=== PATIENT | female | born 1995 | race Caucasian/White ===

== ENCOUNTER 2019-01-03 12:59 | Emergency (ER) | payer BC ==
[2019-01-03 13:22] VITALS: O2SAT 100
[2019-01-03] MEDS ORDERED: Sodium Chloride 0.9% 1,000 ML IV ONE (13:32)
[2019-01-03 14:38] LABS: BASO % 0.7 % (0.0-2.0); EOS # 0.1 K/uL (0.0-0.7); EOS % 1.7 % (0.0-4.0); LYMPH # 1.4 K/uL (1.0-4.3); LYMPH % 18.7 % (20.0-40.0); MEAN CELL VOLUME 94.6 fl (81.0-99.0); MEAN CORPUSCULAR HEMOGLOBIN 32.1 pg (27.0-31.0); MEAN CORPUSCULAR HGB CONC 33.9 g/dL (33.0-37.0); MEAN PLATELET VOLUME 7.8 fl (7.2-11.7); MONO # 0.8 K/uL (0.0-0.8); MONO % 10.1 % (0.0-10.0); NEUT # 5.2 K/uL (1.8-7.0); NEUT % 68.8 % (50.0-75.0); NRBC % 0.1 % (0.0-0.0); RBC 4.35 Mil/uL (3.80-5.20); WHITE BLOOD COUNT 7.6 K/uL (4.8-10.8)
[2019-01-03 14:41] LABS: ALB/GLOB RATIO 1.4 (1.0-2.1); ALBUMIN 4.5 g/dL (3.5-5.0); ALT/SGPT 154 U/L (9-52); BLOOD UREA NITROGEN 8 mg/dl (7-17); CALCIUM 9.4 mg/dL (8.4-10.2); GFR NON-AFRICAN AMERICAN > 60; LIPASE 50 U/L (23-300)
[2019-01-03 14:46] LABS: SQUAMOUS EPITHIAL 2 /hpf (0-5); URINE BACTERIA RARE (<OCC); URINE BILIRUBIN NEGATIVE (NEGATIVE); URINE BLOOD LARGE (NEGATIVE); URINE CLARITY CLEAR (Clear); URINE COLOR STRAW (YELLOW); URINE GLUCOSE (UA) NEG (NEGATIVE); URINE LEUKOCYTE ESTERASE NEG Leu/uL (Negative); URINE PROTEIN NEGATIVE (NEGATIVE); URINE UROBILINOGEN 0.2-1.0 mg/dL (0.2-1.0)
[2019-01-03 14:56] LABS: AST/SGOT 726 U/L (14-36)
--- NOTE | 2019-01-03 15:05 | US ---
Date of service: 01/03/2019 HISTORY: difuse ABD pain; worse in RUQ COMPARISON: None. TECHNIQUE: Sonographic evaluation of the abdomen. FINDINGS: LIVER: Measures cm. Normal echogenicity of the liver parenchyma. No mass. No intrahepatic bile duct dilatation. GALLBLADDER: Unremarkable. No gallstones. COMMON BILE DUCT: Measures mm. No stones. No dilatation. PANCREAS: Unremarkable as visualized. No mass. No ductal dilatation. RIGHT KIDNEY: Measures cm. Normal echogenicity. No calculus, mass, or hydronephrosis. LEFT KIDNEY: Measures cm. Normal echogenicity. No calculus, mass, or hydronephrosis. SPLEEN: Normal in size and contour. No mass. AORTA: No aneurysmal dilatation. IVC: Unremarkable. OTHER FINDINGS: None. IMPRESSION: Unremarkable abdominal sonogram.
--- NOTE | 2019-01-03 16:44 | ED PDOC ---
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 Pt denies urinary symptoms, nausea vomiting and diarrhea.) Past Medical History Reviewed: Historical Data, Nursing Documentation, Vital Signs Vital Signs: Last Vital Signs Temp 98.2 F 01/03/19 13:20 Pulse 57 L 01/03/19 13:20 Resp 16 01/03/19 13:20 BP 104/68 01/03/19 13:20 Pulse Ox 100 01/03/19 13:20 - Medical History PMH: Denies: Chronic Kidney Disease - Family History Family History: States: Unknown Family Hx - Allergies Allergies/Adverse Reactions: Allergies Allergy/AdvReac Type Severity Reaction Status Date / Time No Known Allergies Allergy Verified 01/03/19 13:20 Review of Systems ROS Statement: Except As Marked, All Systems Reviewed And Found Negative Gastrointestinal: Positive for: Abdominal Pain. Negative for: Nausea, Vomiting, Constipation Physical Exam - Reviewed Nursing Documentation Reviewed: Yes Vital Signs Reviewed: Yes - Physical Exam Appears: Positive for: Well, Non-toxic. Negative for: No Acute Distress, Uncomfortable Head Exam: Positive for: ATRAUMATIC, NORMAL INSPECTION Skin: Positive for: Normal Color, Warm. Negative for: Diaphoresis, Pallor, Rash Eye Exam: Positive for: Normal appearance, PERRL. Negative for: Nystagmus, Periorbital swelling, Periorbital tenderness ENT: Positive for: Normal ENT Inspection Neck: Positive for: Normal, Painless ROM, Supple. Negative for: Decreased ROM Cardiovascular/Chest: Positive for: Regular Rate, Rhythm Respiratory: Positive for: Normal Breath Sounds Pulses-Carotid (L): 2+ Pulses-Carotid (R): 2+ Pulses-Radial (L): 2+ Pulses-Radial (R): 2+ Gastrointestinal/Abdominal: Positive for: Bowel Sounds (active in all four quadrants), Soft, Tenderness (RUQ tenderness with a positive shaw sign; rovsing, hanny and psoas tests are negative and there is no tenderness at m[place]ur[place] point) Back: Positive for: Normal Inspection. Negative for: L CVA Tenderness, R CVA Tenderness Neurologic/Psych: Positive for: Alert. Negative for: Motor/Sensory Deficits, Aphasia - Laboratory Results Result Diagrams: 01/03/19 13:44 01/03/19 13:44 Lab Results: Troponin I < 0.0120 ng/mL (0.00-0.120) 01/03/19 13:44 Total Bilirubin 0.4 mg/dl (0.2-1.3) 01/03/19 13:44 AST 726 U/L (14-36) H 01/03/19 13:44 ALT 154 U/L (9-52) H 01/03/19 13:44 Alkaline Phosphatase 61 U/L (38-126) 01/03/19 13:44 Total Protein 7.6 G/DL (6.3-8.2) 01/03/19 13:44 Albumin 4.5 g/dL (3.5-5.0) 01/03/19 13:44 Globulin 3.1 gm/dL (2.2-3.9) 01/03/19 13:44 Albumin/Globulin Ratio 1.4 (1.0-2.1) 01/03/19 13:44 Lipase 50 U/L (23-300) 01/03/19 13:44 Urine Color Straw (YELLOW) 01/03/19 13:42 Urine Clarity Clear (Clear) 01/03/19 13:42 Urine pH 7.0 (5.0-8.0) 01/03/19 13:42 Ur Specific [place] < 1.005 (1.003-1.030) 01/03/19 13:42 Urine Protein Negative mg/dL (NEGATIVE) 01/03/19 13:42 Urine Glucose (UA) Neg mg/dL (NEGATIVE) 01/03/19 13:42 Urine Ketones Negative mg/dL (NEGATIVE) 01/03/19 13:42 Urine Blood Large (NEGATIVE) 01/03/19 13:42 Urine Nitrate Negative (NEGATIVE) 01/03/19 13:42 Urine Bilirubin Negative (NEGATIVE) 01/03/19 13:42 Urine Urobilinogen 0.2-1.0 mg/dL (0.2-1.0) 01/03/19 13:42 Ur Leukocyte Esterase Neg Whit/uL (Negative) 01/03/19 13:42 Urine RBC (Auto) 27 /hpf (0-3) H 01/03/19 13:42 Urine Microscopic WBC 3 /hpf (0-5) 01/03/19 13:42 Ur Squamous Epith Cells 2 /hpf (0-5) 01/03/19 13:42 Urine Bacteria Rare (<OCC) 01/03/19 13:42 - ECG O2 Sat by Pulse Oximetry: 100 Disposition - Clinical Impression Clinical Impression: Elevated liver enzymes - Patient ED Disposition Is Patient to be Admitted: No Counseled Patient/Family Regarding: Studies Performed, Diagnosis, Need For Followup - Disposition Referrals: Deep Tierney MD [Non-Staff] - Phil Tierney MD [Medical Doctor] - Disposition: Routine/Home Disposition Time: 17:02 Condition: STABLE Additional Instructions: [facility] HOTLINE [phone] [phone] Instructions: Liver Function Test, Alcohol Abuse and Alcoholism (DC), Alcohol Use - When Is Drinking a Problem? Forms: [email or web address] ([place])
[2019-01-03 17:17] VITALS: BP 101/61; PULSE 60; RESP 18; TEMP 97.9
== END 2019-01-03 17:15 | disposition home or self-care (01) ==
LOC: H.ER 12:59
DX: R10.11 Right upper quadrant pain (principal); R94.5 Abnormal results of liver function studies; F10.10 Alcohol abuse, uncomplicated
CPT/HCPCS: 76700; 80053; 81003; 81025; 83690; 84484; 85025; 87804; 96360; 99285; J7030